=== PATIENT | female | born 1995 | race Caucasian/White ===

== ENCOUNTER 2019-07-20 09:30 | Inpatient (IN) | payer OTHER ==
[2019-07-27 09:40] VITALS: BMI 36.9
[2019-07-27] MEDS ORDERED: MIDAZOLAM HCL 2 MG/2 ML SINGLE DOSE VIAL ONE (10:47)
[2019-07-27] MEDS ORDERED: BUPIVACAINE HCL/PF 0.5% (5 MG/ML) 30 ML VIAL IJ ONE (10:47)
[2019-07-27] MEDS ORDERED: FAMOTIDINE 20 MG/50 ML IVPB 0 MG/0 ML MG IVPB ONE (13:10)
[2019-07-27] MEDS ORDERED: METOCLOPRAMIDE HCL INJECTION 10 MG/2 ML VIAL ONE ×2 (13:10→15:08)
[2019-07-27] MEDS ORDERED: ONDANSETRON 4 MG/2 ML VIAL ONE (13:10)
--- NOTE | 2019-07-27 13:13 | HP ---
Admitting History and Physical - Admission Chief Complaint: Morbid obesity History Source: Patient Limitations to Obtaining History: No Limitations - Past Medical History ...LMP: 07/09/19 ...: No - Smoking History Smoking history: Never smoked Have you smoked in the past 12 months: No - Alcohol/Substance Use Hx Alcohol Use: Yes (RARE) - Social History ADL: Independent Home Medications - Allergies Allergies/Adverse Reactions: Allergies Allergy/AdvReac Type Severity Reaction Status Date / Time No Known Allergies Allergy Verified 07/27/19 09:09 - Home Medications Home Medications: Ambulatory Orders NK [No Known Home Medication] 07/09/19 Family Medical History Family History: Denies Review of Systems - Review of Systems Constitutional: denies: Chills, Fever Cardiovascular: reports: No Symptoms Respiratory: reports: No Symptoms Gastrointestinal: reports: No Symptoms Neurological: reports: No Symptoms Pain Intensity: 0 Physical Examination Vital Signs: Vital Signs Temperature 98.6 F 07/27/19 09:29 Pulse Rate 95 H 07/27/19 09:29 Respiratory Rate 07/27/19 09:29 Blood Pressure 130/77 07/27/19 09:29 O2 Sat by Pulse Oximetry (%) Constitutional: Yes: Calm Neck: Yes: WNL Cardiovascular: Yes: WNL Respiratory: Yes: Regular Gastrointestinal: Yes: Soft, Abdomen, Obese Neurological: Yes: Alert, Oriented Problem List - Problems (1) Morbid obesity due to excess calories Code(s): E66.01 - MORBID (SEVERE) OBESITY DUE TO EXCESS CALORIES Assessment/Plan Laparoscopic possible open vertical sleeve gastrectomy possible liver biopsy upper endoscopy
[2019-07-27] MEDS ORDERED: SUCCINYLCHOLINE CHLORIDE 200 MG/10 ML SYRINGE ONE (13:27)
[2019-07-27] MEDS ORDERED: ROCURONIUM BROMIDE 50 MG/5 ML SYRINGE ONE (13:27)
[2019-07-27] MEDS ORDERED: PROPOFOL 20 ML ONE (13:27)
[2019-07-27] MEDS ORDERED: BUPIVACAINE HCL 0.25% 125 MG/50 ML VIAL ONE (14:27)
[2019-07-27] MEDS ORDERED: DESFLURANE GAS 240 ML BOTTLE IH ONE (14:31)
[2019-07-27] MEDS ORDERED: BUPIVACAINE HCL/PF 0.25% (2.5MG/ML) 10 ML VIAL IJ ONE (14:50)
[2019-07-27] MEDS ORDERED: NEOSTIGMINE METHYLSULFATE 0.5 MG/ML - 10 ML MDV ONE (14:53)
[2019-07-27] MEDS ORDERED: ONDANSETRON 4 MG/2 ML VIAL IVPUSH PRN (14:59)
[2019-07-27] MEDS ORDERED: LACTATED RINGERS SOLUTION 1,000 ML IV SCH (15:00)
[2019-07-27] MEDS ORDERED: HYDROmorphone HCl 2 MG/ML VIAL IVPB PRN (15:06)
[2019-07-27] MEDS ORDERED: FAMOTIDINE 20 MG/50 ML IVPB 20 MG/50 ML MG IVPB ONE (15:08)
--- NOTE | 2019-07-27 15:14 | OPR ---
Operative Note Operative Date: 07/27/19 Pre-Operative Diagnosis: Morbid obesity Operation: 1. Diagnostic laparoscopy. 2. Laparoscopic vertical sleeve gastrectomy. 3. Laparoscopic wedge liver biopsy. 4. Laparoscopic oversewing of gastric staple line Post-Operative Diagnosis: Same as Pre-op (as well as hepatomegaly and oozing from gastric staple line) Surgeon: Kalin Rudolph Construction Contractor: Darren Albarran Anesthesia: General Specimens Removed: Greater curvature of stomach. Liver biopsy. Estimated Blood Loss (mls): 30 Drains & Tubes with Location: 36 Fr Bougie Operative Report Dictated: Yes
[2019-07-27] MEDS ORDERED: SODIUM CHLORIDE 1,000 ML IV SCH (15:15)
[2019-07-27] MEDS: METOCLOPRAMIDE HCL INJECTION 10 MG/2 ML VIAL IVPUSH SCH ×2 (15:25→21:37)
[2019-07-27] MEDS: ONDANSETRON 4 MG/2 ML VIAL IVPUSH SCH ×3 (15:27→23:10)
[2019-07-27] MEDS ORDERED: FAMOTIDINE 20 MG PREMIXED IVPB IVPB ONE (15:30)
[2019-07-27] MEDS: ACETAMINOPHEN 1000 MG/100 ML VIAL (NON FORMULARY) IVPB SCH ×2 (15:31→21:38)
[2019-07-27 15:49] LABS: HEMATOCRIT 35.3 % (32.4-45.2); HEMOGLOBIN 11.4 GM/dl (10.7-15.3); MCHC 32.3 g/dl (32.0-36.0); MEAN CELL VOLUME 80.4 fl (80-96); MEAN PLT VOLUME 8.3 fl (7.5-11.1); PLATELET COUNT 254 K/MM3 (134-434); RBC 4.39 M/mm3 (3.60-5.2); RDW 14.5 % (11.6-15.6); WHITE BLOOD COUNT 8.1 K/mm3 (4.0-10.8)
[2019-07-27 17:11] LABS: ALBUMIN 3.1 g/dl (3.4-5.0); BILIRUBIN,TOTAL 0.4 mg/dl (0.2-1); CALCIUM 8.5 mg/dl (8.5-10); CREATININE 0.6 mg/dl (0.55-1.3); POTASSIUM 3.5 mmol/L (3.5-5.1); TOT PROT 6.2 g/dl (6.4-8.2)
--- NOTE | 2019-07-27 17:49 | SPEC ---
DATE OF OPERATION: 07/27/2019 PLACE OF SERVICE: [facility], [address] [place] [address] SURGEON: Lolis Rudolph MD GAME DESIGNER: Darren Albarran MD PREOPERATIVE DIAGNOSIS: Morbid obesity. POSTOPERATIVE DIAGNOSES: 1. Morbid obesity. 2. Hepatomegaly. 3. Oozing from gastric staple line. PROCEDURE: Diagnostic laparoscopy, laparoscopic vertical sleeve gastrectomy, laparoscopic wedge liver biopsy, and laparoscopic over sewing of staple line for oozing. SPECIMENS: 1. Greater curvature of the stomach. 2. Liver biopsy. ESTIMATED BLOOD LOSS: 30 mL. DRAIN: None. ANESTHESIA: GET. BOUGIE SIZE: 36-Greenlandic. REASON FOR PROCEDURE: This is a 24-year-old female who presents for weight loss options. After describing different options, she decided to proceed with a laparoscopic, possible open, vertical sleeve gastrectomy, possible liver biopsy, upper endoscopy. The patient was seen by the respective subspecialties and cleared for surgery. The risks and benefits of the procedure were explained. These included bleeding, infection, hernia, DC, DVT, PE, injury to surrounding structures including the liver, colon, bowel, spleen, esophagus, vessel injury, nerve injury, weight regain, gastric leak, staple line leak, sleeve leak, obstruction, vitamin deficiency, hair loss and as some of the possible complications. The patient understood and signed informed consent. DESCRIPTION OF PROCEDURE: The patient was placed supine on the operating room table. The patient underwent general endotracheal intubation. The arms were brought out at 90 degrees and secured. A footboard was placed and the legs were secured laterally with padding. The abdomen was prepped and draped in the usual sterile fashion. A timeout was performed. An incision was made in the left upper quadrant and a Veress needle inserted. Pneumoperitoneum was established. Subsequently, the Veress needle was removed and a 5-mm trocar was placed under direct visualization with the laparoscope. The laparoscopic camera was then inserted and inspection of the abdominal cavity was performed. An incision was then made in the supraumbilical area and a 15-mm trocar was placed under direct visualization. A 5-mm trocar was then placed in the right upper quadrant and a 5-mm trocar was placed below the left subcostal margin. A stab wound was made in the subxiphoid area and a Pauline clamp inserted and removed to dilate the tract. A Zoya liver retractor was inserted. The post was secured at the bedside by the nursing staff. The patient was placed in steep reverse Trendelenburg position and the Zoya liver retractor was used to secure the liver towards the anterior abdominal wall. The pylorus was identified and 6 cm proximal to it, the lesser sac was entered using the LigaSure device. All lateral attachments to the greater curvature of the stomach, including the short gastric vessels, were ligated using the LigaSure device toward the gastrosplenic and gastrophrenic ligaments. Once this was done in its entirety, it was confirmed that all tubes within the nasal or oropharyngeal cavity, including a temperature probe were removed by Anesthesia. The bougie was then inserted by Anesthesia. Transection of the stomach was then begun staying adjacent to the bougie but away from the angularis. Transection of the stomach was performed near the portion of the stomach where the lesser sac was entered. Two laparoscopic Endo-JEREMY black susana were used at this location. Laparoscopic Endo JEREMY purple staple loads were then used for the remainder of the transection until the greater curvature of the stomach was fully transected. This was done staying close to the bougie. Care was taken to stay away from the angle of His cephalad. The staple line was then inspected. Hemostasis was identified. A leak test was then performed. It was clamped distally to the staple line. Irrigation solution was placed in the left upper quadrant and air was insufflated by Anesthesia into the sleeve. No leaks were identified. No obstruction was identified. This was done through the entirety of the staple line. The stomach was suctioned and the bougie removed fully intact under direct visualization. At this point, the irrigation solution was suctioned and again, hemostasis was noted. A wedge liver biopsy was then performed. The left lobe of the liver was identified. A portion of the edge of the left lobe of the liver was grasped. Using electrocautery, a wedge of the left liver was excised. The specimen was removed and sent off the field. Hemostasis of the wedge liver biopsy site was attained and noted using electrocautery. The 15-mm supraumbilical trocar was then removed and the greater curvature specimen removed from the site using a sponge stick samuel. A Nguyễn-Anisha device was then used to close the fascia with a 0 Vicryl suture at the site. Again, hemostasis was noted. The Zoya liver retractor was then removed under direct visualization. Pneumoperitoneum was desufflated. Hemostasis was noted at all incision sites and Marcaine was injected at all incision sites. A 3-0 Vicryl suture was used to close the deep subcutaneous tissue at the 15-mm incision site. All incision sites were closed using 4-0 Biosyn. Sterile dressings were applied. The patient tolerated the procedure well and was transferred to the recovery room in stable condition. LOLIS RUDOLPH M.D. [id number]
[2019-07-27] MEDS: ENOXAPARIN NA (PORCINE) 40 MG/0.4 ML DISP.SYRIN SQ SCH (21:38)
[2019-07-27] MEDS: FAMOTIDINE 20 MG/50 ML IVPB 20 MG/50 ML MG IVPB SCH (21:38)
[2019-07-28] MEDS: ACETAMINOPHEN 1000 MG/100 ML VIAL (NON FORMULARY) IVPB SCH ×2 (04:09→09:41)
[2019-07-28] MEDS: METOCLOPRAMIDE HCL INJECTION 10 MG/2 ML VIAL IVPUSH SCH ×2 (04:09→09:42)
[2019-07-28] MEDS: ONDANSETRON 4 MG/2 ML VIAL IVPUSH SCH ×4 (04:10→14:07)
--- NOTE | 2019-07-28 08:39 | PN ---
Progress Note (short form) - Note Progress Note: POD#1 Pt without any complaints of SOB, CP. Slight nausea no emesis. OOB and ambulating and voiding on her own. Vital Signs Period Temp Pulse Resp BP Sys/Cook Pulse Ox Last 24 Hr 97.8 F-98.6 F 65-95 14-20 100-136/59-77 97-100 GEN: A&0x3, NAD CV; RRR Lungs: CTA b/l ABD: soft, non-distended, inc tenderness. Inc c/d/i LE: no calf tenderness or swelling b/l. SCD/TEDS in place Laboratory Tests 07/27/07/27/19 15:22 15:22 WBC 8.1 Hgb 11.4 Hct 35.3 Plt Count 254 Sodium 137 Potassium 3.5 Chloride 106 Carbon Dioxide 26 Anion Gap 5 L BUN 7.0 Creatinine 0.6 A/p: 24 yo female s/p lap sleeve gastrectomy POD 1 Upper GI series this AM Pain control with Ofirmev 1g q6h, Dilaudid 1mg q3hrs prn DVT prophylaxis with Lovenox 40mg bid, b/l SCDS, b/l TEDS GI prophylaxis with Pepcid 20mg IV BID, Metoclopramide 10mg Iv q6hrs Zofran 4mg q4hrs prn n/v Remote tele/continuous pulse ox Monitor VS Monitor I&Os OOB ad chinyere Continue IVF Incentive spirometry D/w Dr. Rudolph <Michela Krueger - Last Filed: 07/28/19 08:42> - Note Progress Note: POD 1 No acute events AVSS Labs WNL UGI: no leak/obstruction Clears Discharge home <Kalin Rudolph - Last Filed: 07/28/19 20:08> Problem List - Problems (1) Morbid obesity due to excess calories Code(s): E66.01 - MORBID (SEVERE) OBESITY DUE TO EXCESS CALORIES <Kalin Rudolph - Last Filed: 07/28/19 20:08>
[2019-07-28 08:43] LABS: HEMATOCRIT 35.5 % (32.4-45.2); HEMOGLOBIN 11.8 GM/dl (10.7-15.3); MCH 26.6 pg (25.7-33.7); MCHC 33.2 g/dl (32.0-36.0); MEAN CELL VOLUME 80.2 fl (80-96); MEAN PLT VOLUME 8.4 fl (7.5-11.1); PLATELET COUNT 288 K/MM3 (134-434); RBC 4.42 M/mm3 (3.60-5.2); RDW 14.9 % (11.6-15.6); WHITE BLOOD COUNT 10.4 K/mm3 (4.0-10.8)
[2019-07-28] MEDS: ENOXAPARIN NA (PORCINE) 40 MG/0.4 ML DISP.SYRIN SQ SCH (09:42)
[2019-07-28] MEDS: FAMOTIDINE 20 MG/50 ML IVPB 20 MG/50 ML MG IVPB SCH (09:42)
[2019-07-28 11:01] LABS: ALBUMIN 3.2 g/dl (3.4-5.0); BILIRUBIN,TOTAL 0.3 mg/dL (0.2-1); BLOOD UREA NITROGEN 7.2 mg/dL (7-18); CALCIUM 8.7 mg/dL (8.5-10.1); CREATININE 0.6 mg/dL (0.55-1.3); POTASSIUM 4.1 mmol/L (3.5-5.1); TOT PROT 6.8 g/dl (6.4-8.2)
[2019-07-28] MEDS ORDERED: oxyCODONE HCL 5 MG TABLET PO PRN (13:52)
--- NOTE | 2019-07-28 13:52 | PN ---
Progress Note (short form) - Note Progress Note: ANESTHESIA POSTOP 24 YO FEMALE POD #1 S/P LAP GASTRIC SLEEVE Patient sitting in chair. No complaints. Tolerating clear. Pain adequately controlled. VSS, Afebrile Encourage IS and ambulation. Continue current care. No anesthetic complications.
[2019-07-28] MEDS ORDERED: SODIUM CHLORIDE 1,000 ML IV SCH (14:00)
[2019-07-28 14:19] VITALS: BP 123/72; PULSE 88; TEMP 98.4
--- NOTE | 2019-07-30 14:47 | PATH ---
Surgical Pathology Report Patient Name: ELIE VILLANUEVA Med. Rec. #: [id number] /Age/Gender: 1995 (Age: 24) / F Account: [id number] Location: [facility] Taken: 07/27/2019 Received: 07/27/2019 Reported: 07/30/2019 Physicians: Kalin Rudolph M.D. Specimen(s) Received A: GREATER CURVATURE STOMACH B: LIVER BIOPSY Clinical History Morbid obesity Final Diagnosis A. GREATER CURVATURE OF STOMACH, LAPAROSCOPIC GASTRIC SLEEVE EXCISION: PORTION OF STOMACH SHOWING MODERATE CHRONIC GASTRITIS. 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 B. LIVER, BIOPSY: LIVER SHOWING MILD STEATOSIS (~10%). TRICHROME STAIN SHOWS NO APPRECIABLE INCREASE IN FIBROSIS. IRON STAIN SHOWS NO IRON DEPOSITS. Electronically Signed Caty Lynne M.D. Gross Description A. Received in formalin, labeled "greater curvature stomach," is an 85 gram, 17.5 x 3.5 x 2.7 cm. portion of stomach with a stapled margin of resection. The serosa is cormier-russell with minimal attached fat. The mucosa is cormier-pink with normal folds. No mucosal masses are identified. Flame Cutter sections are submitted in one cassette. B. Received in formalin labeled "liver biopsy," is a 3.0 x 0.9 x 0.3 cm cormier, irregular portion of soft tissue, consistent with a portion of liver. The specimen is submitted in toto in one cassette. /07/28/2019 saudi07/28/2019
== END 2019-07-28 15:00 | disposition home or self-care (01) | DRG 403 ==
LOC: FM/S 07-27 08:53
PROVIDERS: ADMIT Surgery; ATTEND Surgery
PROC: 0DJ04ZZ Inspection of Upper Intestinal Tract, Percutaneous Endoscopic Approach (ICD-10-PCS; 2019-07-27)
PROC: 0DB64Z3 Excision of Stomach, Percutaneous Endoscopic Approach, Vertical (ICD-10-PCS; principal; 2019-07-27 14:17)
PROC: 0FB23ZX Excision of Left Lobe Liver, Percutaneous Approach, Diagnostic (ICD-10-PCS; 2019-07-27 14:17)
DX: E66.01 Morbid (severe) obesity due to excess calories (principal); Z68.37 Body mass index [BMI] 37.0-37.9, adult; R16.0 Hepatomegaly, not elsewhere classified
CPT/HCPCS: 36415; 74240-TC-FY; 80053; 84703; 85027; 94760; J0131